=== PATIENT | female | born 1985 | race American Indian/Alaskan Native ===

== ENCOUNTER 2020-12-08 06:22 | Inpatient (IN) | payer MEDICAID ==
[2020-12-08] MEDS ORDERED: BICITRA ORAL LIQD 30ML PO NR (07:33)
[2020-12-08] MEDS ORDERED: METOCLOPRAMIDE 10 MG/2 ML INJ IV NR (07:33)
[2020-12-08] MEDS ORDERED: FAMOTIDINE 20 MG/2 ML INJ IV NR (07:33)
[2020-12-08 07:45] LABS: Basophils % (Auto) 0.6 % (0.0-1.8); Eosinophils # (Auto) 0.1 K/mm3 (0.0-0.4); Eosinophils % (Auto) 1.3 % (0.0-4.3); Hematocrit 37.3 % (30.3-42.9); Hemoglobin 12.5 gm/dl (10.1-14.3); Lymphocytes # (Auto) 1.9 K/mm3 (1.2-5.4); Lymphocytes % (Auto) 32.4 % (13.4-35.0); Mean Corpuscular HGB Conc 34 % (30-34); Mean Corpuscular Volume 83 fl (79-97); Monocytes # (Auto) 0.3 K/mm3 (0.0-0.8); Monocytes % (Auto) 5.4 % (0.0-7.3); Platelet Count 258 K/mm3 (140-440); Red Blood Count 4.49 M/mm3 (3.65-5.03); Red Cell Distribution Width 14.7 % (13.2-15.2)
[2020-12-08] MEDS ORDERED: LACTATED RINGERS 1,000 ML IV SCH (07:45)
[2020-12-08] MEDS ORDERED: OXYTOCIN DRIP 30 UNITS/500 ML BAG IV SCH ×2 (08:00→13:38)
--- NOTE | 2020-12-08 08:13 | Anesthesia Day of Surgery ---
Anesthesia Day of Surgery - Day of Surgery Patient Examined: Yes Patient H&P Reviewed: Yes Patient is NPO: Yes (189912/07/20) Beta Blockers: No Cardiac Clearance: No Pulmonary Clearance: No Efrain's Test: Negative
[2020-12-08] MEDS ORDERED: HYDROmorphone 1 MG/1 ML INJ IV PRN ×2 (08:15→08:30)
[2020-12-08] MEDS ORDERED: NALOXONE 0.4 MG/1 ML INJ IV PRN ×2 (08:15→13:38)
--- NOTE | 2020-12-08 08:15 | Anesthesia Consultation ---
Anesthesia Consult and Med Hx Date of service: 12/08/20 - Airway Anesthetic Teeth Evaluation: Poor ROM Head & Neck: Adequate Mental/Hyoid Distance: Adequate Mallampati Class: Class III Intubation Access Assessment: Possibly Difficult - Pulmonary Exam CTA: Yes - Cardiac Exam Cardiac Exam: RRR - Pre-Operative Health Status ASA Pre-Surgery Classification: ASA3 Proposed Anesthetic Plan: Spinal - Pulmonary Hx Smoking: No Hx Asthma: Yes (inhaler used last 2months ago) Hx Respiratory Symptoms: No SOB: Yes COPD: No Home Oxygen Therapy: No Hx Pneumonia: No Hx Sleep Apnea: No - Cardiovascular System Hx Hypertension: No Hx Coronary Artery Disease: No Hx Heart Attack/AMI: No Hx Angina: No Hx Percutaneous Transluminal Coronary Angioplasty (PTCA): No Hx Cardia Arrhythmia: No Hx Pacemaker: No Hx Internal Defibrillator: No Hx Valvular Heart Disease: No Hx Heart Murmur: No Hx Peripheral Vascular Disease: No - Central Nervous System Hx Neuromuscular Disorder: No Hx Seizures: No CVA: No Hx Back Pain: Yes Hx Psychiatric Problems: No - Gastrointestinal Hx Ulcer: No Hx Gastroesophageal Reflux Disease: No - Endocrine Hx Renal Disease: No Hx End Stage Renal Disease: No Hx Cirrhosis: No Hx Liver Disease: No Hx Insulin Dependent Diabetes: No Hx Non-Insulin Dependent Diabetes: No Hx Thyroid Disease: No Hx Hypothyroidism: No Hx Hyperthyroidism: No - Hematic Hx Anemia: No Hx Sickle Cell Disease: No - Other Systems Hx Alcohol Use: No Hx Substance Use: No Hx Cancer: No Hx Obesity: Yes
[2020-12-08] MEDS ORDERED: ONDANSETRON 4 MG/2 ML INJ IV PRN (08:30)
--- NOTE | 2020-12-08 08:30 | History and Physical Report ---
History of Present Illness Date of examination: 12/08/20 Date of admission: 12/08/20 06:22 Chief complaint: I'm here for my History of present illness: Patient is a 35-year-old 4 para 4 with 2 previous vaginal deliveries and a previous section for twins. Her EDC was 12/04/2020 and patient initially wanted to however due to an extremely nonfavorable cervix decision was made to proceed with section. She is HSV-2. She failed her initial Glucola screen however she passed her 3-hour test. Other complications include morbid obesity. 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 Family/Genetic History: none Social history: single - Obstetrical History Expected Date of Delivery: 12/04/20 Actual Gestation: 40 Week(s) 4 Day(s) : 4 Para: 3 Number of Living Children: 4 Medications and Allergies Allergies Allergy/AdvReac Type Severity Reaction Status Date / Time Egg Derived Allergy Anaphylaxis Verified 12/08/20 07:19 shellfish derived Allergy Anaphylaxis Verified 12/08/20 07:19 Home Medications Medication Instructions Recorded Confirmed Last Taken Type ALBUTEROL NEB's 2 inhalation PO PRN PRN 12/08/20 12/08/20 1 Month Ago History ~11/07/20 One Daily Tablet 1 tab PO DAILY 12/08/20 12/08/20 1 Day Ago History ~12/07/20 Active Meds: Active Medications Citric Acid/Sodium Citrate (Bicitra Oral Liqd 30ml) 30 ml PO ONCE NR Stop: 12/08/20 12:00 Last Admin: 12/08/20 07:57 Dose: 30 ml Documented by: Famotidine (Famotidine 20 Mg/2 Ml Inj) 20 mg IV ONCE NR Stop: 12/08/20 12:00 Last Admin: 12/08/20 07:57 Dose: 20 mg Documented by: Hydromorphone HCl (Hydromorphone 1 Mg/1 Ml Inj) 0.5 mg IV Q5M PRN PRN Reason: BREAK Stop: 12/08/20 20:00 Hydromorphone HCl (Hydromorphone 1 Mg/1 Ml Inj) 0.5 mg IV Q4H PRN PRN Reason: breakthrough pain > 7/10 Lactated Ringer's (Lactated Ringers) 1,000 mls @ 2,250 mls/hr IV PREOP WILY Stop: 12/09/20 08:12 Last Admin: 12/08/20 07:57 Dose: 2,250 mls/hr Documented by: Oxytocin/Sodium Chloride (Pitocin/Ns 30 Unit/500ml) 30 units in 500 mls @ 0 mls/hr IV TITR WILY; Protocol Cefazolin Sodium 3 gm/ Sodium (Chloride) 100 mls @ 100 mls/30 min IV PREOP NR; Protocol Stop: 12/08/20 12:00 Metoclopramide HCl (Metoclopramide 10 Mg/2 Ml Inj) 10 mg IV ONCE NR Stop: 12/08/20 12:00 Last Admin: 12/08/20 07:57 Dose: 10 mg Documented by: Naloxone HCl (Naloxone 0.4 Mg/1 Ml Inj) 0.2 mg IV Q2MIN PRN PRN Reason: Res Rate </= 8 or 02 SAT < 92% Ondansetron HCl (Ondansetron 4 Mg/2 Ml Inj) 4 mg IV Q8H PRN PRN Reason: Nausea And Vomiting Review of Systems All systems: negative Genitourinary: contractions - Vital Signs Vital signs: Vital Signs Temp Pulse Ox 98.4 F 98 12/08/20 07:23 12/08/20 07:23 Temp Pulse Resp BP Pulse Ox 98.4 F 98 12/08/20 07:23 12/08/20 07:23 - Physical Exam Breasts: Positive: deferred Cardiovascular: Regular rate, Normal S1, Normal S2 Lungs: Positive: Clear to auscultation, Normal air movement Abdomen: Positive: normal appearance, soft, normal bowel sounds. Negative: distention, tenderness Genitourinary (Female): Positive: normal external genitalia, normal perenium Vulva: both: normal Vagina: Positive: normal moisture. Negative: discharge Cervix: Negative: lesion, discharge Uterus: Positive: normal size, normal contour Adnexa: both: normal Anus/Rectum: Positive: normal perianal skin, heme negative. Negative: rectal mass, hemorrhoids Extremities: Deep Tendon Reflex Grade: Normal +2 - Obstetrical FHR: auscultation normal Cervical Dilatation: 0 Cervical Effacement Percentage: 0 Uterine Contraction Pattern: Irregular Uterine Contraction Intensity: Mild Results Result Diagrams: 12/08/20 06:45 All other labs normal. Assessment and Plan IUP at 40 and 4 for elective repeat section without tubal ligation. Consents signed and placed on chart. We will proceed with surgery as planned.
[2020-12-08] MEDS ORDERED: ceFAZolin/STERILE WATER 2 GM/20 ML SYRINGE IV ONE (08:41)
[2020-12-08] MEDS ORDERED: SODIUM CHLORIDE 0.9% IRR 1,500 ML BOTTLE IR ONE (09:08)
[2020-12-08] MEDS ORDERED: WATER FOR IRRIG STERILE 1,500 ML BOTTLE IR ONE (09:08)
[2020-12-08] MEDS ORDERED: KETOROLAC 30 MG/1 ML INJ ONE ×2 (09:21)
[2020-12-08] MEDS ORDERED: PHENYLEPHRINE 10 MG/1 ML INJ SDV ONE (09:22)
[2020-12-08] MEDS ORDERED: ONDANSETRON 4 MG/2 ML INJ ONE ×2 (09:22)
[2020-12-08] MEDS ORDERED: BUPIVACAINE/PF (0.25%) 2.5 MG/ML 30 ML VIAL INFILTRATI ONE ×2 (09:37)
[2020-12-08] MEDS ORDERED: dexAMETHasone 20 MG/5 ML VIAL ONE (09:37)
--- NOTE | 2020-12-08 10:14 | Procedure Note ---
OB Delivery Note - Delivery Date of Delivery: 12/08/20 Surgeon: JUAN PABLO MELENDEZ Estimated blood loss: 500cc - Section Preop diagnosis: repeat , desires sterilization Postop diagnosis: same section procedure: repeat low transverse Disposition: PACU Complications: none - Infant A at 1 minute: 8 at 5 minutes: 9 Infant Gender: Male (8 pouinds 12 ounces)
[2020-12-08] MEDS ORDERED: ePHEDrine SULFATE 50 MG/1 ML INJ IV PRN (10:39)
[2020-12-08] MEDS ORDERED: ePHEDrine SULFATE 50 MG/1 ML INJ ONE (10:41)
[2020-12-08] MEDS ORDERED: D5W/LACTATED RINGERS 1,000 ML IV SCH (13:38)
[2020-12-08] MEDS ORDERED: SIMETHICONE 80 MG CHEW TAB PO PRN (13:38)
[2020-12-08] MEDS ORDERED: oxyCODONE /ACETAMINOPHEN 5-325MG TAB PO PRN (13:38)
[2020-12-08] MEDS ORDERED: ACETAMINOPHEN 325 MG TAB PO PRN (13:38)
[2020-12-08] MEDS ORDERED: LANOLIN/ZINC/DIMETHICONE (LANSINOH) 7 GM TP PRN (13:38)
[2020-12-08] MEDS ORDERED: WITCH HAZEL/ GLYCERIN PAD TP PRN (13:38)
--- NOTE | 2020-12-08 13:39 | Post Anesthesia Evaluation ---
- Post Anesthesia Evaluation Patient Participated: Yes Airway Patent: Yes Stable Respiratory Function: Yes Nausea/Vomiting: No Temp > 96.8F: Yes Pain Manageable: Yes Adequeate Hydration: Yes Anesthesia Complications: No Block Receding Appropriately: Yes Patient on Ventilator: No
[2020-12-08] MEDS: MORPHINE 2 MG/1 ML INJ IV PRN ×2 (14:45→20:15)
[2020-12-08] MEDS: IBUPROFEN 800 MG TAB PO PRN (22:38)
[2020-12-09 00:37] LABS: Hematocrit 32.3 % (30.3-42.9); Hemoglobin 10.9 gm/dl (10.1-14.3)
[2020-12-09] MEDS: IBUPROFEN 800 MG TAB PO PRN ×4 (05:09→23:52)
[2020-12-09] MEDS: PRENATAL VIT27-FE FUMARATE-FOLIC ACID VIT TAB PO SCH (11:07)
--- NOTE | 2020-12-09 11:57 | Progress Note ---
Assessment and Plan POD 1 s/p ltcs. Doing well. Continue care plan. Plan for discharge on tomorrow Subjective - Subjective Date of service: 12/09/20 Interval history: Patient is a 35-year-old 4 para 4 with 2 previous vaginal deliveries and a previous section for twins. Her EDC was 12/04/2020 and patient initially wanted to however due to an extremely nonfavorable cervix decision was made to proceed with section. She is HSV-2. She failed her initial Glucola screen however she passed her 3-hour test. Other complications include morbid obesity. Patient reports: appetite normal, voiding normally, pain well controlled, flatus, ambulating normally Oley: doing well Objective - Vital Signs Latest vital signs: Vital Signs Temp Pulse Resp BP BP Pulse Ox Pulse Ox 12/09/20 08:45 97.7 F 79 20 125/69 12/09/20 08:00 99 12/09/20 04:45 98.1 F 78 20 115/47 99 12/09/20 00:26 98.1 F 20 133/73 12/08/20 23:30 99 12/08/20 22:38 18 99 12/08/20 20:45 98.0 F 77 20 120/74 98 99 12/08/20 20:15 18 99 12/08/20 19:30 99 12/08/20 18:47 99 12/08/20 17:25 98.1 F 72 18 114/69 100 12/08/20 14:25 99 12/08/20 12:20 99 Intake and Output 12/08/20 12/09/20 12/09/20 22:59 06:59 14:59 Intake Total 360 320 Output Total 500 700 Balance -500 -340 320 Intake: Oral 120 320 Intake, Free Water 240 Output: Urine 500 700 Uretheral (Ambrose) 500 400 Void 300 Other: Total, Intake Amount 120 320 Total, Output Amount 300 # Voids Void 1 - Exam Breasts: Present: deferred Cardiovascular: Present: Regular rate, Normal S1, Normal S2 Lungs: Present: Clear to auscultation, Normal air movement Abdomen: Present: normal appearance, soft Uterus: Present: normal, firm Extremities: Present: normal Incision: Present: normal, dry, intact
[2020-12-10] MEDS: IBUPROFEN 800 MG TAB PO PRN ×2 (06:06→12:16)
[2020-12-10] MEDS: PRENATAL VIT27-FE FUMARATE-FOLIC ACID VIT TAB PO SCH (10:23)
--- NOTE | 2020-12-10 11:26 | Discharge Summary ---
Providers - Providers Date of Admission: 12/08/20 06:22 Date of discharge: 12/10/20 Attending physician: JUAN PABLO MELENDEZ Primary care physician: JUAN PABLO MELENDEZ Hospitalization Reason for admission: section Delivery: Procedure: repeat low transverse Episiotomy: none Incision: normal, dry, intact Discharge diagnosis: IUP at term delivered [place] baby: male Condition at discharge: Good Disposition: DC-01 TO HOME OR SELFCARE Plan - Discharge Medications Prescriptions: Docusate Sodium [Colace] 100 mg PO BID #60 capsule Ibuprofen [Motrin] 800 mg PO Q8HR PRN #40 tablet PRN Reason: Pain, Mild (1-3) HYDROcodone/APAP 5-325 [[place] 5/325] 2 each PO Q6HR PRN #30 tablet PRN Reason: Pain - Provider Discharge Summary Activity: routine, no sex for 6 weeks, no heavy lifting 4 weeks, no strenuous exercise Diet: routine Instructions: routine Additional instructions: [] Smoking cessation referral if applicable(refer to patient education folder for contact #) [] Refer to [facility] Booklet Call your doctor immediately for: * Fever > 100.5 * Heavy vaginal bleeding ( >1 pad per hour) * Severe persistent headache * Shortness of breath * Reddened, hot, painful area to leg or breast * Drainage or odor from incision. * Keep incision clean and dry at all times and follow doctor's instructions regarding bathing/showering - Follow up plan Follow up: JUAN PABLO MELENDEZ MD [Primary Care Provider] - 14 Days Forms: [facility] Discharge Summary
[2020-12-10 13:14] VITALS: BP 130/78
--- NOTE | 2020-12-23 09:11 | Operative Report ---
Operative Report Operative Report: Preoperative diagnosis: Intrauterine at 40 weeks 2. Previous x1 3. Undesired fertility Postoperative diagnosis: Same Procedure: Repeat low transverse section, Bilateral tubal ligation Surgeon: Dr. Aubrie Palma EBL: 700 cc Urine output: 200 mL IV fluids: 1400 cc mL Findings: Viable male in the vertex presentation. Weight 8 lbs. 12 oz. 3952 g Apgars 8 and 9. Otherwise normal pelvic anatomy Specimens: Portion of right and left fallopian tube Complications: None Procedure: The patient was admitted to the OR with IV running and in place. She was properly identified as herself. She was given spinal anesthesia in the OR without difficulty. She was placed in the dorsal supine position with a leftward tilt. A Ambrose catheter was inserted. She was then prepped and draped in the normal sterile fashion. An Allis test was used to confirm adequate anesthesia. Once confirmed, the incision was made with the scalpel and carried to the underlying fascia using the scalpel and the Bovie. The fascia was inc ised in the midline and incision was extended bilaterally using the curved Taylor scissors. The fascia was then dissected from the underlying rectus muscles in a series of sharp and blunt dissection using the Taylor scissors. Muscles were in the in the midline sharply using Metzenbaum scissors and the peritoneum was entered into bluntly using the surgeon's fingers. A bladder blade was then placed into the incision to protect the bladder. Following this the bladder flap was created. Hysterotomy incision was then made in the scalpel. Upon uterine entry, the amniotic sac was ruptured for clear fluid. The infant was then delivered without difficulty. His mouth and nose were suctioned on the field. The cord was clamped and cut and he was handed to the waiting NICU personnel. The uterus was then exteriorized and cleared of all clots and debris. The hysterotomy incision was then closed in a running locked fashion using 0 Vicryl. The abdomen was then copiously irrigated with warm normal saline. Attention was turned the the fallopian tubes. Each tube was identified and followed out the the fimbriated end. Each tube was grasped in the midportion and ligated in the [place] style Tubal ligation. Following this the uterus was replaced into the abdominal cavity. At this point the muscles were reapproximated in the midline using individual sutures of 0 Vicryl. Following this the fascia was closed in a running fashion using 0 Vicryl. Tissue was then copiously irrigated. Retention sutures were placed in the subcutaneous fat tissue Skin was closed in a running fashion using 3-0 Monocryl. The sponge lap needle and instrument counts were correct 2. The patient tolerated the procedure well. She was taken to recovery in stable condition.
== END 2020-12-10 13:30 | disposition home or self-care (01) | DRG 765 ==
LOC: APU 06:22 → OB 12:26
PROVIDERS: ADMIT Obstetrics & Gynecology; ATTEND Obstetrics & Gynecology
PROC: 10D00Z1 Extraction of Products of Conception, Low, Open Approach (ICD-10-PCS; principal; 2020-12-08)
PROC: 0UB70ZZ Excision of Bilateral Fallopian Tubes, Open Approach (ICD-10-PCS; 2020-12-08)
DX: O34.211 Maternal care for low transverse scar from previous cesarean delivery (principal); O98.32 Other infections with a predominantly sexual mode of transmission complicating childbirth; O99.52 Diseases of the respiratory system complicating childbirth; O99.214 Obesity complicating childbirth; E66.01 Morbid (severe) obesity due to excess calories; Z20.822 Contact with and (suspected) exposure to COVID-19; Z3A.40 40 weeks gestation of pregnancy; Z37.0 Single live birth; Z91.012 Allergy to eggs; Z91.013 Allergy to seafood; A60.00 Herpesviral infection of urogenital system, unspecified; Z30.2 Encounter for sterilization
CPT/HCPCS: 36415; 85014; 85018; 85025; 86592; 86850; 86900; 86901; 88302; G0378; J0690; J1100; J1885; J2270; J2370; J2405; J2765; J3490; J7120; J7121; U0003